=== PATIENT | male | born 1970 | race Caucasian/White ===

== ENCOUNTER 2018-10-12 05:47 | Day surgery (SDC) | payer OTHER ==
--- NOTE | 2018-10-11 21:30 | PDGENHP ---
History and Physical - Chief Complaint LEFT HIP PAIN - History of Present Illness 1. Left~Femoroacetabular impingement (CELESTE) Cam type,~with~resultant labral tear, Cartilage damage 2. Left~Early Osteoarthritis 3. Left adductor atrophy -- r/o sports tumor~/ nerve entrapment~ HISTORY OF PRESENT ILLNESS: Jenniferis a 48 y.o.~very~~active male~who I have had the pleasure to consult on today. I have enjoyed meeting him.~Bud~lives in [place].~~Jenniferworks as a criminal attorney.~~He~is ;~bud~has 1 (8 yo)~children. ~Jenniferenjoys competitive cycling ([employer], [employer]). Tremaine's~left~hip pain started 3 years ago with worsening in the last 3 months, with~some~recalled trauma or injury 3 months ago (sprint workout on his road bike), and with~no~previous complaints. Jenniferdoes not have~a known history of hip dysplasia. Presentation today is of~anterior, posterior~left~hip pain sometimes deep and sometimes more superficial in nature. ~The hip~does~wake him~at night and does~ click and catch on him. Sitting~can be a real struggle~for him.~Jenniferdoes~ report suffering from lower back pain episodes, though feels this is more fatigue.~ Jenniferhas~participated in physical therapy (currently going, started 2.5 months ago)~and has~tried other conservative measures including dry needling, chiropractic treatments and massage therapy.~Bud~has not~received sufficient symptomatic improvement. No hip injections. Jenniferhas~utilized medication for pain management, including NSAID.~Jenniferhas used medication regularly for the last 3 months. Jenniferdenies issues with the right~hip currently.~He did have previous problems with his right hip at age 21 -- felt like muscles locked up, unable to sleep. He was treated with PT and symptoms completely resolved.~~ Jenniferunderstands that he~has a hip and pelvis problem which should be researched and wishes to get a better understanding of his~hip status, followed by an establishment of a treatment strategy, hoping he~would be able to get back to his~well being active life. History: Past medical history:~~ Left ventricular hypertrophy, murmur -- normal cardiac workup Relevant familial history:~High blood pressure Past surgical history:~ No. Surgery Anesthesia Year Outcome 1 R RCR, biceps tenodesis General, regional 2017 Good Tremaine~denies problematic issues with general anesthesia in the past. I have reviewed, verified and agree with the past medical, surgical, family and social history. Current Medications:~has a current medication list which includes the following prescription(s): ibuprofen. ALLERGIES:~has No Known Allergies. Objective: Physical Examination: Tremaine~is 5~feet 9~inches tall and weighs 157~Lbs. Tremaine~is AAO x3; he~is well- nourished, in NAD. Skin is warm and dry. ~Breathing is non-labored. ~CV with RRR by pulse. Abdomen is soft, NTND. Currently,~he~walks with a normal~gait. Trendelenburg sign is~negative~and proprioception is reduced,~left~sides. He~presents with no~signs of joint laxity. Beightons Score:~0 He~is fit looking. ~~ Lower spine examination is~negative~for sciatic or femoral nerve irritation with negative~SLR &~femoral stretch tests. Range of motion of the spine is normal~for flexion, extension, and rotations, with no~associated pain. Strength, Sensation and pulses are~normal -~bilaterally Ankles and knees exams are~normal~and no~mal-alignment is evident. He~has right~0.25~cm short leg length discrepancy. Thigh circumference is~symmetric~with evidence of atrophy on L adductors. Hip ROM (degrees): FL ER At 90~hip FL IR At 90~hip FL AB AD EX IR Neutral hip ER Neutral hip R 100 40 15 30 5 0 35 40 L 100 45 20 40 5 0 35 45 Specific hip and pelvis tests: Impingement Test TAMEKA Roll Add. Longus R Negative Negative Negative Negative L +++ Negative Negative Negative Glut. Med ITB Posterior Imp R Negative 5/5 strength Negative 5/5 strength Negative L Negative 5/5 strength Negative 5/5 strength Negative Squeeze test measured~normal Tenderness in the adductor muscle belly (attributes 15-20% of pain here) with less muscle bulk. Bony Symphysis pubis is~pain free~to touch while concentric activity of the rectus abdominis, does not~produce pain at its insertion. Ilio Psos specific tests are~negative for pain during cycling for~both hips~and remarkable for no snaps HF has~no pain~both hips. Posterior~capsule tenderness L side Greater trochanteric burse~has minimal pain~on both hips. Piriformis tests: FAIR is~negative,~with no~local signs of neuritis related to sciatic nerve. SIJs examination is~normal~with normal~TAMEKA in relation and local tenderness. Hamstrings tests are~negative~tendinopathy both hips. On a daily basis, the following percentages reflect~Tremaine's overall total pain: Deep hip:~80% Adductors/medial thigh:~20% Imaging: Radiology studies which I have personally reviewed, analyzed and measured are below: XR: AP of the hip and pelvis: Performed in a~fair~technique Coccyx to pubic symphysis distance~0.6~cm overlap. No annotation of~degrees caudal/cephal [place] Lines are~preserved. Minimal~Pathological signs are seen in the Symphysis Pubis. Minimal~Pathological signs are seen at the Ischial tuberosity. ~ Specific measurements show: NSA~ LCE Sourcil~Angle Sharp's angle Lat. Cam Lat. Pincer C.Over~sign Head~Coverage % ATDmm R 130 35 3 38 + Neg Neg 80% 18.9 L 135 31 3 38 + Neg Neg 80% 21.8 Pos. wall sign ISS NAD ~~Dysplasia Comments R + Negative 17.0~mm Negative L + Negative 18.9~mm Negative Sclerosis Sup. Lat. OA Cysts Joint Space-WBZ Joint Space-Medial R + Negative Negative 4.4~mm 3.0~mm L + Negative Negative 3.8~mm 3.2~mm X Table lateral: Anterior cam lesion is~seen~on the left hip. Alpha Angle: ~ Right~No Bishop lateral Left~60~degrees XR L femur:~no soft tissue calcifications, no periosteal reaction, normal appearance of femur MRI shows:~07/05/18, L hip - labral tear, moderate cartilage fibrillation, edema anterolateral without acetabular cysts Impression and plan:Jazmin Rodriguezis a 48 y.o.~active male~suffering from symptomatic Left~Femoroacetabular impingement (CELESTE) Cam type,~with~resultant labral tear, Cartilage damage causing significant disability to~him~and altering his~sport and life activities. He also has Left distal adductor atrophy and pain which needs to be investigated.~ Physical examination, imaging, and~his~story correspond with the diagnosis mentioned above. I explained that femoroacetabular impingement (CELESTE) arises due to a bony or soft tissue conflict between the femur (ball) and acetabulum (socket) caused by an abnormality in the shape of the hip joint. Over time, repetitive impingement can result in damage to the labrum and adjacent surface cartilage within the socket, ultimately giving rise to progressive osteoarthritis of the hip. I explained that although a labral tear can be a source of pain, it is rarely the root of the problem and typically occurs secondary to an underlying abnormality in the shape and mechanics of the hip joint. ~ I reviewed conservative treatment options for CELESTE including activity modification to avoid positions of impingement, physical therapy, non-steroidal anti-inflammatory medications, and various injections (corticosteroid and PRP) aimed at reducing inflammation in the hip joint or/and preventing dynamic impingement. PRP injections may promote healing and reduce symptoms in certain cases but it will not repair chronically damaged tissue. Although these measures may help to buy time and reduce current level of symptoms, they are not a definitive solution to the problem given the underlying abnormality in the shape of the hip joint. Patients who have failed conservative management and continue to experience symptoms are candidates for hip arthroscopy, a minimally invasive surgery that can definitively address the underlying problem. Hip arthroscopy typically includes treating the labrum with either repair or reconstruction of the torn labrum; as well as addressing the underlying abnormalities by restoring the normal shape to the hip joint. ~If the cartilage is damaged a Microfracture~ surgical procedure may also be necessary to help stimulate the growth of fibrocartilage. ~If a patient requires a labral reconstruction or a Microfracture, the initial rehabilitation from the surgery may take longer, but the mcc results are typically favorable I reviewed the technical aspects of hip arthroscopy including risks, benefits, and expected course of recovery. Tremaine understands that hip arthroscopy is a minimally invasive outpatient procedure carried out through small incisions on the outer aspect of the hip joint. During surgery, the labral tear will be identified and either repaired or reconstructed using bone anchors and suture material. Additionally, any excessive bone will be removed with a high-speed miguel to reshape the hip joint and restore normal anatomy. Risks include infection, bleeding, injury to nearby nerves or vessels, stiffness, persistent pain, instability, venous thromboembolic disease, and traction related complications including temporary foot numbness. Rarely, revision surgery may be required to address these problems. Overall recovery takes approximately 4 8 months depending on the extent of damage and degree of repair. In the event that the labral tissue quality is inadequate for successful repair and healing, Tremaine understands that a labral reconstruction will be performed. This procedure entails placing a cadaver tissue graft within the hip joint and stabilizing it with bone anchors to build a new labrum. The overall recovery time for labral reconstruction is similar to that of labral repair, although the surgical procedure takes longer to perform. Tremaine~will review the info presented. In order to obtain more detailed information regarding the alignment, orientation, and shape of the bony hip and pelvis I will order a CT scan to be performed. The results of the CT scan, including femoral torsion and acetabular version measured values and 3D images, will aid me in deciding on the best treatment strategy and surgical pre-planning. We will refer him to Dr. Simons for EMG to evaluate for nerve source of adductor atrophy. Depending on the results of the EMG and her impression, we would consider ordering an~MRI~of his L~femur to evaluate for soft tissue mass and rule out tumor as a reason for his adductor symptoms. Tremaine is going to contact us after completing his imaging studies~and we will review the results. Termaine~is happy with this plan. I have also supplied~him~with handouts, outlining the expected surgical treatment and rehab involved. I wish~TremaineJazminall the best, ~~ Gayatri Monsalve MD History Information - Allergies/Home Medication List Allergies/Adverse Reactions: No Known Allergies Allergy (Verified 09/24/18 11:08) Home Medications: Herbals/Supplements -Info Only 09/24/18 [Last Taken Unknown] Ibuprofen 09/24/18 [Last Taken Unknown] I have personally reviewed and updated: medical history - Social History Smoking Status: Never smoked Review of Systems Review of Systems: Physical Exam Physical Exam:
[2018-10-12] MEDS ORDERED: PREGABALIN 150 MG CAP PO ONE (06:00)
[2018-10-12] MEDS ORDERED: ACETAMINOPHEN 500 MG TAB PO ONE (06:00)
[2018-10-12] MEDS ORDERED: ceFAZolin 2 GM/DEXTROSE 100 ML IV ONE (06:00)
[2018-10-12] MEDS ORDERED: LR 1,000 ML IV ONE (06:01)
[2018-10-12] MEDS ORDERED: BUPIVACAINE/EPI 0.25% 30 ML SDV ONE (06:55)
[2018-10-12] MEDS ORDERED: EPINEPHrine 30 MG/30 ML MDV (0.1 MG/0.1 ML) ONE (06:55)
--- NOTE | 2018-10-12 07:02 | PDANEPAE ---
ANE History of Present Illness L hip scope for labral repair ANE Past Medical History - Cardiovascular History Hx Hypertension: No Hx Arrhythmias: No Hx Chest Pain: No Hx Coronary Artery / Peripheral Vascular Disease: No Hx CHF / Valvular Disease: No Hx Palpitations: No Cardiovascular History Comment: has been told he has a faint heart murmur - Pulmonary History Hx COPD: No Hx Asthma/Reactive Airway Disease: No Hx Recent Upper Respiratory Infection: No Hx Oxygen in Use at Home: No Hx Sleep Apnea: No Sleep Apnea Screening Result - Last Documented: Negative - Neurologic History Hx Cerebrovascular Accident: No Hx Seizures: No Hx Dementia: No - Endocrine History Hx Diabetes: No - Renal History Hx Renal Disorders: No - Liver History Hx Hepatic Disorders: No - Neurological & Psychiatric Hx Hx Neurological and Psychiatric Disorders: No Neurological / Psychiatric History Comment: hx of depression while he was in law school 16 yrs ago - Cancer History Hx Cancer: No - Congenital Disorder History Hx Congenital Disorders: No - GI History Hx Gastrointestinal Disorders: No - Other Health History Other Health History: none - Chronic Pain History Chronic Pain: Yes (left hip) - Surgical History Prior Surgeries: 09/21/17 right shoulder surgery- RTC repair and bicep tendon repair ANE Review of Systems Review of Systems: - Exercise capacity METS (RN): 6 METS ANE Patient History - Allergies Allergies/Adverse Reactions: No Known Allergies Allergy (Verified 09/24/18 11:08) - Home Medications Home medications: home medication list seen and reviewed Home Medications: Herbals/Supplements -Info Only 09/24/18 [Last Taken 10/05/18] Ibuprofen 09/24/18 [Last Taken 10/05/18] - NPO status NPO Status: no food or drink >8 hours NPO Since - Liquids (Date): 10/11/18 NPO Since - Liquids (Time): 19:00 NPO Since - Solids (Date): 10/11/18 NPO Since - Solids (Time): 19:00 - Anes Hx Anes Hx: no prior problems - Smoking Hx Smoking Status: Never smoked - Alcohol Use Alcohol Use: Occasionally - Family Anes Hx Family Anes Hx: none Family Hx Anesthesia Complications: none ANE Labs/Vital Signs - Vital Signs Blood Pressure: 141/88 Heart Rate: 58 Respiratory Rate: 16 O2 Sat (%): 94 Height: 175.26 cm Weight: 71.214 kg ANE Physical Exam - Airway Neck exam: FROM Mallampati Score: Class 1 Mouth exam: normal dental/mouth exam - Pulmonary Pulmonary: no respiratory distress - Cardiovascular Cardiovascular: regular rate and rhythym - ASA Status ASA Status: I ANE Anesthesia Plan Anesthesia Plan: GA w LMA
[2018-10-12] MEDS ORDERED: LIDOCAINE 2% 100 MG/5 ML SYR ONE (07:15)
[2018-10-12] MEDS ORDERED: ONDANSETRON 4 MG/2 ML VIAL ONE (07:15)
[2018-10-12] MEDS ORDERED: fentaNYL 100 MCG/2 ML INJ ONE ×2 (07:15→11:33)
[2018-10-12] MEDS ORDERED: PROPOFOL/EMULSION 500 MG/50 ML BOTTLE IV ONE ×2 (07:15→08:49)
[2018-10-12] MEDS ORDERED: DEXAMETHASONE 4 MG/ML VIAL ONE ×2 (07:15)
--- NOTE | 2018-10-12 10:57 | POSTOPPROG ---
Post Op Note Date of Operation: 10/12/18 Surgeon: Matt Quinn Customer Support Assistant: Dr. Zazueta Anesthesia: GET(General Endotracheal) Pre-op Diagnosis: Left CELESTE Post-op Diagnosis: Left CELESTE Procedure: Left Hip Arthroscopy Inf/Abcess present in the surg proc area at time of surgery?: No
[2018-10-12] MEDS ORDERED: DEXAMETHASONE 4 MG/ML VIAL IVP PRN (11:31)
[2018-10-12] MEDS ORDERED: METOCLOPRAMIDE 10 MG/2 ML VIAL IVP PRN (11:31)
[2018-10-12] MEDS ORDERED: fentaNYL 100 MCG/2 ML INJ IVP PRN (11:31)
[2018-10-12] MEDS ORDERED: ALBUTEROL 3 ML DEYVIAL IH PRN (11:31)
[2018-10-12] MEDS ORDERED: LABETALOL HCL 5 MG/ML 20 ML MDV IVP PRN (11:31)
[2018-10-12] MEDS ORDERED: LR 500 ML IV PRN (11:31)
[2018-10-12] MEDS ORDERED: MEPERIDINE 25 MG/0.5 ML AMP IVP PRN (11:31)
[2018-10-12] MEDS ORDERED: PHENYLEPHRINE HCL 100 MCG/ML SYR IVP PRN (11:31)
[2018-10-12] MEDS ORDERED: NALOXONE HCL 0.4 MG/ML INJ IVP PRN (11:31)
[2018-10-12] MEDS ORDERED: oxyCODONE IR 5 MG TAB PO PRN (11:31)
[2018-10-12] MEDS ORDERED: PROMETHAZINE HCL 25 MG/ML INJ IVP PRN (11:31)
[2018-10-12] MEDS ORDERED: ONDANSETRON 4 MG/2 ML VIAL IVP PRN (11:31)
[2018-10-12] MEDS ORDERED: HYDROCODONE/APAP 5/325 TAB PO PRN (11:31)
[2018-10-12] MEDS ORDERED: ACETAMINOPHEN 500 MG TAB PO PRN (11:31)
[2018-10-12] MEDS ORDERED: HYDROCODONE/APAP 5/325 TAB ONE (11:33)
--- NOTE | 2018-10-12 11:43 | POSTANESTH ---
Post Anesthetic Evaluation Cardiovascular Status: Normal, Stable Respiratory Status: Normal, Stable Level of Consciousness/Mental Status: Can Participate in Eval Pain Control: Adequate, Prn Tx Ordered Nausea/Vomiting Control: Adequate, Prn Tx Ordered Complications Possibly Related to Anesthesia: None Noted
[2018-10-12 13:47] VITALS: BP 129/84
== END 2018-10-12 13:48 | disposition home or self-care (01) ==
LOC: FSGY 05:47
PROVIDERS: ATTEND Orthopaedic Surgery Sports Medicine
DX: M25.852 Other specified joint disorders, left hip (principal); M16.12 Unilateral primary osteoarthritis, left hip; R01.1 Cardiac murmur, unspecified
CPT/HCPCS: C1713; J0171; J0690; J1100; J2001; J2270; J2405; J2704; J3010